=== PATIENT | female | born 1980 | race Asian ===

== ENCOUNTER 2018-10-30 10:20 | Inpatient (IN) | payer OTHER ==
[2018-10-30 11:27] LABS: BASO % 0.4 % (0-2.0); EOS % 0.8 % (0-4.5); HEMATOCRIT 34.7 % (32.4-45.2); HEMOGLOBIN 11.7 GM/dL (10.7-15.3); LYMPH % 19.3 % (8-40); MCH 33.9 pg (25.7-33.7); MCHC 33.7 g/dl (32.0-36.0); MEAN CELL VOLUME 100.4 fl (80-96); MEAN PLT VOLUME 7.6 fl (7.5-11.1); MONO % 10.9 % (3.8-10.2); NEUT % 68.6 % (42.8-82.8); PLATELET COUNT 156 K/MM3 (134-434); RBC 3.45 M/mm3 (3.60-5.2); RDW 18.2 % (11.6-15.6); WHITE BLOOD COUNT 5.5 K/mm3 (4.0-10.0)
[2018-10-30 11:39] LABS: INR 0.88 (0.83-1.09); PROTHROMBIN TIME (PATIENT) 10.4 SEC (9.7-13.0)
[2018-10-30 11:42] LABS: ACTIVATED PTT 27.7 SECONDS (25.2-36.5)
[2018-10-30] MEDS ORDERED: AMPICILLIN SODIUM 2 GM VIAL ONE (11:54)
[2018-10-30 11:58] LABS: CALCIUM 8.5 mg/dL (8.5-10.1); CREATININE 0.5 mg/dL (0.55-1.3); POTASSIUM 3.9 mmol/L (3.5-5.1)
[2018-10-30] MEDS ORDERED: AMPICILLIN - 2 GM in SODIUM CHLORIDE 100 ML IVPB ONE (12:00)
[2018-10-30] MEDS ORDERED: DEXTROSE 5%-LACTATED RINGERS 1,000 ML IV SCH ×2 (12:15→13:15)
[2018-10-30] MEDS ORDERED: TUBERCULIN PPD 5 TU/0.1ML SYRINGE (IN PATIENT USE ONLY) ID ONE (12:15)
[2018-10-30 12:40] VITALS: BMI 25.4
[2018-10-30] MEDS ORDERED: OXYTOCIN 30 UNITS in 0.9% NS 30 UNIT/500 ML INFUS.BAG IVPB SCH (13:15)
[2018-10-30] MEDS ORDERED: OXYTOCIN 20 UNITS in 0.9% NS 20 UNIT/1,000 ML INFUS.BAG IV ONE (13:15)
[2018-10-30] MEDS ORDERED: AMPICILLIN SODIUM 1 GM VIAL ONE ×3 (16:01→23:56)
[2018-10-30] MEDS: AMPICILLIN - 1 GM in SODIUM CHLORIDE 100 ML IVPB SCH ×2 (16:07→20:00)
[2018-10-30] MEDS ORDERED: FENTANYL/BUPIVACAINE/NS/PF - PCEA - 50 ML DISP.SYRIN EP ONE ×2 (17:33→23:00)
--- NOTE | 2018-10-30 18:02 | HP ---
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: No: Alzheimer's, CVA, Dementia, Migraine, Multiple Sclerosis, Peripheral Neuropathy, Parkinson's, Seizure, Syncope, TIA, Vertigo, Other Cardiovascular: No: AFIB, Aneurysm, Aortic Insufficiency, Aortic Stenosis, CAD, CHF, Deep Vein Thrombosis, HTN, Hyperlipdemia, ND, Mitral Insufficiency, Mitral Stenosis, Murmur, Pulmonary Hypertension, Other Pulmonary: No: Asthma, Bronchitis, Cancer, COPD, O2 Dependent, Pneumonia, Previously Intubated, Pulmonary Embolus, Pulmonary Fibrosis, Sleep Apnea, Other Gastrointestinal: No: Ascites, Cancer, Constipation, Crohn's Disease, Diverticulitis, Diverticulosis, Esophageal Varices, Gastritis, GERD, GI Bleed, Hemorrhoids, Hiatal Hernia, Inflamatory Bowel Disease, Irritable Bowel Disease, Pancreatitis, Peptic Ulcer Disease, Ulcerative Colitis, Other Hepatobiliary: No: Cirrhosis, Cholelithiasis, Cholecystitis, Choledocholithiasis , Hepatitis A, Hepatitis B, Hepatitis C, Other Renal/: No: Renal Failure, Renal Inusuff, BPH, Cancer, Hematuria, Hemodialysis , Neurogenic Bladder, Renal Calculi, UTI, Other Reproductive: No: Ectopic , Endometriosis, Fibroids, PID, Polycystic Ovary Syndrome, Postmenopausal, Other ...: 5 ...Para: 3 ...Term: 3 ...: 0 ...Spon : 1 ...Induced : 0 ...Multiple Gestation: 0 ...LMP: 01/27/18 ... Weeks Gestation by Dates: 39.3 ...EDC by Dates: 11/03/18 ...EDC by Sono: 11/03/18 Heme/Onc: No: Anemia, B12 Deficiency, Bleeding Disorder, Cancer, Current Chemotherapy, Current Radiation Therapy, Hemochromatosis, Hypercoaguable State, Myeloproliferative Synd, Sickle Cell Disease, Sickle Cell Trait, Thrombocytopenia, Other Infectious Disease: No: AIDS, C-Diff, Herpes Zoster, HIV, MRSA, STD's, Tuberculosis, VREF, Other Psych: No: Addictions, Anxiety, Bipolar, Depression, Panic, Psychosis, Schizophrenia, Other Musculoskeletal: No: Bursitis, Chronic low back pain, Hemiparesis, Hemiplegia, Osteoarthritis, Paraplegia, Other Rheumatology: No: Fibromyalgia, Gout, Lupus, Rheumatoid Arthritis, Sarcoidosis, Vasculitis, Other ENT: No: Allergic Rhinitis, Sinusitis, Other Endocrine: No: Dubois's Disease, Osmel's Disease, Diabetes Insipidus, Diabetes Mellitus, Hyperparathyroidism, Hyperthyroidism, Hypothyroidism, Osteopenia, SIADH, Other Dermatology: No: Basal Cell, Cellulitis, Eczema, Melanoma, Psoriasis, Squamous Cell, Other - Past Surgical History Past Surgical History: No: None, AAA Repair, AICD, Amputation, Appendectomy, Arthrosocopy, AV Fistula/Graft, Bariatric Surgery, Breast Biopsy, Bypass, CABG, Carotid Endarterectomy, Cataract Removal, Cholecystectomy, Colectomy, Colonoscopy, Colostomy, Craniotomy, , Cystectomy, Hernia Repair, Hysterectomy, Ileal Conduit, Ileosotomy, Joint Replacement, Kidney Transplant, Laminectomy, Liver Transplant, Mastectomy, Nephrectomy, Oopherectomy, Orchiectomy, Permanent Pacemaker, Prostatectomy, Splenectomy, Stent, Thoracotomy , TURP, Tonsillectomy, Tubal Ligation, Upper Endoscopy, Valve Replacement, Vasectomy, Vein Stripping/Ligation Hx Myomectomy: No Hx Transabdominal Cerclage: No - Advance Directives Advance Directives: Yes: Living Will, Health Care Proxy - Smoking History Smoking history: Never smoked Have you smoked in the past 12 months: No - Alcohol/Substance Use Hx Alcohol Use: No History of Substance Use: reports: None - Social History Usual Living Arrangement: Yes: With Spouse ADL: Independent History of Recent Travel: No Home Medications - Allergies Allergies/Adverse Reactions: Allergies Allergy/AdvReac Type Severity Reaction Status Date / Time No Known Drug Allergies Allergy Verified 10/30/18 11:41 Family Disease History - Family Disease History Family History: Denies Review of Systems Unable to obtain ROS, reason: none - Review of Systems Constitutional: reports: No Symptoms Eyes: reports: No Symptoms HENT: reports: No Symptoms Neck: reports: No Symptoms Cardiovascular: reports: No Symptoms Respiratory: reports: No Symptoms Gastrointestinal: reports: No Symptoms Genitourinary: reports: No Symptoms Breasts: reports: No Symptoms Reported Musculoskeletal: reports: No Symptoms Integumentary: reports: No Symptoms Neurological: reports: No Symptoms Endocrine: reports: No Symptoms Hematology/Lymphatic: reports: No Symptoms Psychiatric: reports: No Symptoms Pain Intensity: 3 Physical Exam - Maternity Vital Signs: Vital Signs Temperature 98.1 F 10/30/18 17:00 Pulse Rate 77 10/30/18 17:00 Respiratory Rate 18 10/30/18 17:00 Blood Pressure 111/64 10/30/18 17:00 O2 Sat by Pulse Oximetry (%) Constitutional: Yes: Well Nourished, No Distress, Calm Eyes: Yes: WNL, Conjunctiva Clear, EOM Intact HENT: Yes: WNL, Atraumatic, Normocephalic Neck: Yes: WNL, Supple, Trachea Midline Cardiovascular: Yes: WNL, Regular Rate and Rhythm Lungs: Clear to auscultation Breast(s): Yes: WNL - Abdominal Exam/OB Fundal Height: 40 Number of Fetuses: Single Presentation: Vertex Contractions: Yes Regularity: Irregular Intensity: Mild/Mod Monitor Mode: External Heart Rate Location: [facility] Category: I Accelerations: Uniform Decelerations: None - Vaginal Exam/OB Vaginal Bleediing: No Speculum Exam: No Dilatation (cm): 3 Effacement (%): 60 Amniotic Membrane Status: Intact Presentation: Vertex/Position Station: -1 - Physical Exam Musculoskeletal: Yes: WNL Extremities: Yes: WNL Edema: Yes (1 plus ) Edema: LUE: 1+, RUE: 1+, LLE: 1+, RLE: 1+ Integumentary: Yes: WNL Deep Tendon Reflex Grade: Normal +2 ...Motor Strength: WNL Psychiatric: Yes: WNL, Alert, Oriented - Labs Lab Results: CBC, BMP 10/30/18 10:55 10/30/18 10:55 Hemorrhage Risk Assessment - Risk Factors Risk Score: 0 Risk Level: Low Risk Problem List - Problems (1) Normal vaginal delivery Code(s): O80 - ENCOUNTER FOR FULL-TERM UNCOMPLICATED DELIVERY Assessment/Plan for vag delivery
--- NOTE | 2018-10-30 18:04 | PN ---
Progress Note (short form) - Note Progress Note: 1 pm, 3 cm -1 60%, for pitocin, arom done, uc q irregular Problem List - Problems (1) Normal vaginal delivery Code(s): O80 - ENCOUNTER FOR FULL-TERM UNCOMPLICATED DELIVERY
--- NOTE | 2018-10-30 18:06 | PN ---
Progress Note (short form) - Note Progress Note: 5 pm 4 cm , uc q 4 m, 4cm 70 5, -1, requesting epidural Problem List - Problems (1) Normal vaginal delivery Code(s): O80 - ENCOUNTER FOR FULL-TERM UNCOMPLICATED DELIVERY
[2018-10-30] MEDS: FENTANYL/BUPIVACAINE/NS/PF - PCEA - 50 ML DISP.SYRIN EP SCH (18:15)
[2018-10-30] MEDS ORDERED: NALOXONE HCL 0.4 MG/ML VIAL IVPUSH PRN (18:29)
[2018-10-30] MEDS ORDERED: ELECTROLYTE-148 SOLN 500 ML IV ONE (19:15)
[2018-10-30] MEDS ORDERED: ELECTROLYTE-148 SOLN 500 ML IV SCH (19:15)
--- NOTE | 2018-10-30 23:04 | PN ---
Progress Note (short form) - Note Progress Note: 8pm 5 cm, -1, 70 %, comfort w epidural, continue pitocin Problem List - Problems (1) Normal vaginal delivery Code(s): O80 - ENCOUNTER FOR FULL-TERM UNCOMPLICATED DELIVERY
--- NOTE | 2018-10-30 23:05 | PN ---
Progress Note (short form) - Note Progress Note: 930 pm 8 cm, 0 station, 80%, uc q 3 m , epidural still working, continue pitocin , pushing soon Problem List - Problems (1) Normal vaginal delivery Code(s): O80 - ENCOUNTER FOR FULL-TERM UNCOMPLICATED DELIVERY
--- NOTE | 2018-10-30 23:06 | PN ---
Progress Note (short form) - Note Progress Note: 1030 pm 9cm, 0 station, 90 %, contractions q 3 m , comfort w epidural, pushing soon Problem List - Problems (1) Normal vaginal delivery Code(s): O80 - ENCOUNTER FOR FULL-TERM UNCOMPLICATED DELIVERY
[2018-10-31] MEDS: AMPICILLIN - 1 GM in SODIUM CHLORIDE 100 ML IVPB SCH
[2018-10-31] MEDS ORDERED: OXYTOCIN 20 UNITS in 0.9% NS 20 UNIT/1,000 ML INFUS.BAG IV ONE (01:06)
[2018-10-31] MEDS ORDERED: METHYLERGONOVINE MALEATE 0.2 MG/1 ML AMP IM PRN (01:25)
[2018-10-31] MEDS ORDERED: WITCH HAZEL 50% (TUCKS) 40 PAD/JAR PAD TP PRN (01:25)
[2018-10-31] MEDS ORDERED: BENZOCAINE 28 GM HEMORRHOIDAL OINTMENT TP PRN (01:25)
[2018-10-31] MEDS ORDERED: oxyCODONE HCL 5 MG TABLET PO PRN (01:25)
[2018-10-31] MEDS ORDERED: BISACODYL 10 MG SUPP.RECT RC PRN (01:25)
[2018-10-31] MEDS ORDERED: BENZOCAINE 20% 57 GM BOTTLE TP PRN (01:25)
--- NOTE | 2018-10-31 01:25 | PN ---
Delivery - Delivery Type of Anesthesia: Epidural Episiotomy/Laceration: None EBL (cc): 450 Delivery, Single - Stages of Labor Date 1st Stage Initiatied: 10/30/18 Time 1st Stage Initiated: 12:30 Date 2nd Stage Initiated: 10/31/18 Time 2nd Stage Initiated: 00:05 Date of Delivery: 10/31/18 Time of Delivery: 00:57 Date Placenta Delivered: 10/31/18 Time Placenta Delivered: 01:15 Placenta: Yes: Spontaneous - Condition of Infant Oncology Coordinator/Cashier Courtesy Booth Present: No Infant Gender: Female Position: Left, OA - 1 Minute Total Score: 9 5 Minutes Total Score: 10 - Feeding Plan Initial Plan: Exclusive throughout hospitalization Benefits of Exclusively reinforced: Yes
[2018-10-31] MEDS ORDERED: OXYTOCIN 20 UNITS in 0.9% NS 20 UNIT/1,000 ML INFUS.BAG IV SCH (01:30)
[2018-10-31] MEDS: ACETAMINOPHEN 325 MG TABLET (FP) PO PRN ×3 (06:38→20:39)
[2018-10-31] MEDS: IBUPROFEN 600 MG TABLET (FP) PO PRN ×3 (06:39→20:38)
[2018-10-31] MEDS ORDERED: DIPHTH,PERTUSS(ACELL),TET 0.5 ML DISP.SYRIN IM ONE (10:00)
--- NOTE | 2018-10-31 14:42 | PN ---
Post Progress Note - Subjective Subjective: pt is doing well Post Day: 1 Type of Delivery: Vital Signs: Vital Signs Temperature 98.5 F 10/31/18 13:19 Pulse Rate 81 10/31/18 13:19 Respiratory Rate 20 10/31/18 13:19 Blood Pressure 100/56 L 10/31/18 13:19 O2 Sat by Pulse Oximetry (%) 99 10/31/18 02:00 wnl Breast Exam: Yes: Soft Uterus: Yes: Fundus Firm, Fundus below umbilicus Incision: Yes: Dressing dry and intact, Sutures intact Abdomen/GI: Yes: Abdomen soft, Passing flatus, Tolerating PO Lochia: Yes: Serosa Lochia, amount: Small Extremities: Yes: Calves non-tender Perineum: Yes: Intact Activity: Ambulating (no bleeding , will dc pt home on friday ) - Labs Labs: CBC WBC 5.5 K/mm3 (4.0-10.0) 10/30/18 10:55 RBC 3.45 M/mm3 (3.60-5.2) L 10/30/18 10:55 Hgb 11.7 GM/dL (10.7-15.3) 10/30/18 10:55 Hct 34.7 % (32.4-45.2) 10/30/18 10:55 MCV 100.4 fl (80-96) H 10/30/18 10:55 MCH 33.9 pg (25.7-33.7) H 10/30/18 10:55 MCHC 33.7 g/dl (32.0-36.0) 10/30/18 10:55 RDW 18.2 % (11.6-15.6) H 10/30/18 10:55 Plt Count 156 K/MM3 (134-434) 10/30/18 10:55 MPV 7.6 fl (7.5-11.1) 10/30/18 10:55 Absolute Neuts (auto) 3.7 K/mm3 (1.5-8.0) 10/30/18 10:55 Neutrophils % 68.6 % (42.8-82.8) 10/30/18 10:55 Lymphocytes % 19.3 % (8-40) 10/30/18 10:55 Monocytes % 10.9 % (3.8-10.2) H 10/30/18 10:55 Eosinophils % 0.8 % (0-4.5) 10/30/18 10:55 Basophils % 0.4 % (0-2.0) 10/30/18 10:55 Nucleated RBC % 0 % (0-0) 10/30/18 10:55 Problem List - Problems (1) Normal vaginal delivery Code(s): O80 - ENCOUNTER FOR FULL-TERM UNCOMPLICATED DELIVERY Assessment/Plan swollen of vulva are decreased
--- NOTE | 2018-10-31 14:55 | DS ---
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: Vital Signs Temperature 98.5 F 10/31/18 13:19 Pulse Rate 81 10/31/18 13:19 Respiratory Rate 20 10/31/18 13:19 Blood Pressure 100/56 L 10/31/18 13:19 O2 Sat by Pulse Oximetry (%) 99 10/31/18 02:00 Constitutional: Yes: Well Nourished, No Distress, Calm Eyes: Yes: WNL, Conjunctiva Clear, EOM Intact HENT: Yes: WNL, Atraumatic, Normocephalic Neck: Yes: WNL, Supple, Trachea Midline Cardiovascular: Yes: WNL, Regular Rate and Rhythm Respiratory: Yes: WNL, Regular, CTA Bilaterally Gastrointestinal: Yes: WNL, Normal Bowel Sounds, Soft ...Rectal Exam: Yes: WNL Renal/: Yes: WNL Pelvis: Yes: WNL External Genitalia: Yes: Normal Internal Exam Deferred: Yes Vaginal Exam: Yes: Normal Cervix: Yes: Normal Uterus: Yes: Normal Adnexa: Normal: Left, Right, Bilateral ....Post : Yes: Uterus firm, Uterus non-tender, Slight lochia serosa Breast(s): Yes: WNL Musculoskeletal: Yes: WNL Extremities: Yes: WNL Edema: Yes Edema: LUE: 1+, RUE: 1+, LLE: 1+, RLE: 1+ Integumentary: Yes: WNL Wound/Incision: Yes: Clean/Dry, Well Approximated Neurological: Yes: WNL, Alert, Oriented ...Motor Strength: WNL Psychiatric: Yes: WNL, Alert, Oriented Labs: CBC, BMP 10/30/18 10:55 10/30/18 10:55 Delivery - Delivery Type of Anesthesia: Epidural Episiotomy/Laceration: None, 1st degree EBL (cc): 450 Delivery, Single - Stages of Labor Date 1st Stage Initiatied: 10/30/18 Time 1st Stage Initiated: 12:30 Date 2nd Stage Initiated: 10/31/18 Time 2nd Stage Initiated: 00:05 Date of Delivery: 10/31/18 Time of Delivery: 00:57 Time Placenta Delivered: 01:15 Placenta: Yes: Spontaneous - 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 18mins. - 1 Minute Total Score: 9 5 Minutes Total Score: 10 - Feeding Plan Initial Plan: Exclusive throughout hospitalization Benefits of Exclusively reinforced: Yes Discharge Summary Reason For Visit: INDUCTION OF LABOR Current Active Problems Normal vaginal delivery (Acute) Procedures: Principal: vaginal delivery Other Procedures: none Condition: Stable - Instructions Diet, Activity, Other Instructions: regular Disposition: HOME
[2018-11-01 06:55] LABS: BASO % 0.2 % (0-2.0); EOS % 0.8 % (0-4.5); HEMOGLOBIN 9.4 GM/dL (10.7-15.3); LYMPH % 18.3 % (8-40); MCH 33.8 pg (25.7-33.7); MCHC 33.5 g/dl (32.0-36.0); MEAN CELL VOLUME 100.9 fl (80-96); MEAN PLT VOLUME 7.5 fl (7.5-11.1); MONO % 6.1 % (3.8-10.2); NEUT % 74.6 % (42.8-82.8); PLATELET COUNT 127 K/MM3 (134-434); RBC 2.78 M/mm3 (3.60-5.2); RDW 18.4 % (11.6-15.6); WHITE BLOOD COUNT 10.1 K/mm3 (4.0-10.0)
[2018-11-01] MEDS: FENTANYL/BUPIVACAINE/NS/PF - PCEA - 50 ML DISP.SYRIN EP SCH (07:25)
[2018-11-01] MEDS: IBUPROFEN 600 MG TABLET (FP) PO PRN ×2 (11:38→22:53)
[2018-11-01] MEDS: ACETAMINOPHEN 325 MG TABLET (FP) PO PRN ×2 (11:39→22:54)
[2018-11-01] MEDS ORDERED: SENNOSIDES/DOCUSATE COMBO (SENNA PLUS) TABLET (UD) PO PRN (22:00)
--- NOTE | 2018-11-01 22:01 | PN ---
Post Progress Note - Subjective Subjective: pt is doing well, no complaints Post Day: 1 Type of Delivery: Vital Signs: Vital Signs Temperature 97.7 F 11/01/18 10:00 Pulse Rate 72 11/01/18 10:00 Respiratory Rate 20 11/01/18 10:00 Blood Pressure 110/68 11/01/18 10:00 O2 Sat by Pulse Oximetry (%) 99 10/31/18 02:00 wnl Breast Exam: Yes: Soft Uterus: Yes: Fundus Firm, Fundus below umbilicus Abdomen/GI: Yes: Abdomen soft Lochia: Yes: Alba Lochia, amount: Small Extremities: Yes: Calves non-tender Perineum: Yes: Episiotomy Activity: Ambulating - Labs Labs: CBC WBC 10.1 K/mm3 (4.0-10.0) H 11/01/18 05:30 RBC 2.78 M/mm3 (3.60-5.2) L 11/01/18 05:30 Hgb 9.4 GM/dL (10.7-15.3) L 11/01/18 05:30 Hct 28.0 % (32.4-45.2) L D 11/01/18 05:30 MCV 100.9 fl (80-96) H 11/01/18 05:30 MCH 33.8 pg (25.7-33.7) H 11/01/18 05:30 MCHC 33.5 g/dl (32.0-36.0) 11/01/18 05:30 RDW 18.4 % (11.6-15.6) H 11/01/18 05:30 Plt Count 127 K/MM3 (134-434) L 11/01/18 05:30 MPV 7.5 fl (7.5-11.1) 11/01/18 05:30 Absolute Neuts (auto) 7.6 K/mm3 (1.5-8.0) 11/01/18 05:30 Neutrophils % 74.6 % (42.8-82.8) 11/01/18 05:30 Lymphocytes % 18.3 % (8-40) 11/01/18 05:30 Monocytes % 6.1 % (3.8-10.2) 11/01/18 05:30 Eosinophils % 0.8 % (0-4.5) 11/01/18 05:30 Basophils % 0.2 % (0-2.0) 11/01/18 05:30 Nucleated RBC % 0 % (0-0) 11/01/18 05:30 asymptomatic Problem List - Problems (1) Normal vaginal delivery Code(s): O80 - ENCOUNTER FOR FULL-TERM UNCOMPLICATED DELIVERY Assessment/Plan dc pt home tomorrow
[2018-11-02 10:33] VITALS: BP 117/70; PULSE 53; TEMP 97.9
[2018-11-02] MEDS: ACETAMINOPHEN 325 MG TABLET (FP) PO PRN (11:51)
[2018-11-02] MEDS: IBUPROFEN 600 MG TABLET (FP) PO PRN (11:51)
== END 2018-11-02 01:26 | disposition home or self-care (01) | DRG 807 ==
LOC: JLDR 10:20 → J3W 10-31 04:15
PROVIDERS: ADMIT Obstetrics & Gynecology; ATTEND Obstetrics & Gynecology
PROC: 10E0XZZ Delivery of Products of Conception, External Approach (ICD-10-PCS; principal; 2018-10-30)
PROC: 0HQ9XZZ Repair Perineum Skin, External Approach (ICD-10-PCS; 2018-10-30)
PROC: 3E0R3BZ Introduction of Anesthetic Agent into Spinal Canal, Percutaneous Approach (ICD-10-PCS; 2018-10-30)
DX: O70.0 First degree perineal laceration during delivery (principal); Z37.0 Single live birth; Z3A.39 39 weeks gestation of pregnancy
CPT/HCPCS: 36415; 59409; 71046-TC-FY; 80048; 85025; 85610; 85730; 86593; 86850; 86900; 86901; 90715